=== PATIENT | female | born 1945 | race African-American/Black ===

== ENCOUNTER 2025-08-19 13:36 | Inpatient (IN) | payer OTHER ==
[2025-08-19 15:29] LABS: ABSOLUTE IMMATURE GRANULOCYTES 0.02 x10^3/uL (0.0-0.031); BASOPHILS # 0.05 x10^3/uL (0.01-0.08); EOSINOPHIL % 2.9 % (0.7-5.8); EOSINOPHILS # 0.19 x10^3/uL (0.04-0.36); MCHC 30.2 g/dl (32.2-35.5); MEAN CELL VOLUME 78.3 fl (79.4-94.8); MEAN PLT VOLUME 9.0 fl (9.4-12.3); MONOCYTE # 0.60 x10^3/uL (0.24-0.86); MONOCYTE % 9.1 % (4.7-12.5); RDW 17.7 % (12.4-16.6)
[2025-08-19 15:55] LABS: GLUCOSE,RANDOM 90.0 mg/dL (74-106); TOT PROT 6.2 g/dl (6.4-8.2)
[2025-08-19 15:56] LABS: CO2 27.0 mmol/L (21-32)
[2025-08-19 15:58] LABS: ALK PHOS 71.0 U/L (40-150)
[2025-08-19 16:00] LABS: SGOT/AST 20.0 U/L (5-34); SGPT/ALT 8.0 U/L (0-55)
[2025-08-19 16:01] LABS: CREATININE 0.47 mg/dL (0.55-1.3)
[2025-08-19 16:18] LABS: HIV INTERPRETATION NEGATIVE (NEGATIVE)
[2025-08-19 16:19] LABS: HCV DIAGNOSTIC IN-HOUSE W/RFLX NON-REACTIVE (NONREACTIVE)
[2025-08-19 19:24] LABS: URINE APPEARANCE CLEAR; URINE BILIRUBIN NEGATIVE (NEGATIVE); URINE COLOR YELLOW; URINE GLUCOSE (UA) NEGATIVE (NEGATIVE); URINE KETONE NEGATIVE (NEGATIVE); URINE LEUK ESTERASE NEGATIVE (NEGATIVE); URINE NITRITE NEGATIVE (NEGATIVE); URINE PROTEIN NEGATIVE (NEGATIVE); URINE UROBILINOGEN 0.2 mg/dL (0.2-1.0)
[2025-08-19 23:44] VITALS: BMI 31.5
[2025-08-20 09:37] LABS: MCHC 29.8 g/dl (32.2-35.5); MEAN CELL VOLUME 79.1 fl (79.4-94.8); MEAN PLT VOLUME 9.9 fl (9.4-12.3); RDW 17.6 % (12.4-16.6)
[2025-08-20] MEDS: ENOXAPARIN NA (PORCINE) 40 MG/0.4 ML DISP.SYRIN SQ SCH (09:53)
[2025-08-20 11:12] LABS: GLUCOSE,RANDOM 105.0 mg/dL (74-106)
[2025-08-20 11:14] LABS: CO2 25.0 mmol/L (21-32)
[2025-08-20 11:18] LABS: CREATININE 0.52 mg/dL (0.55-1.3)
[2025-08-20] MEDS: MAGNESIUM SULFATE IN WATER 2 GM/50 ML IVPB IVPB ONE (13:41)
[2025-08-20] MEDS: ARTIFICIAL TEARS OPHTHALMIC DROPS OU SCH (22:50)
[2025-08-20] MEDS: OXYMETAZOLINE 0.05% NASAL SOLUTION 15 ML BOTTLE NS SCH (22:51)
[2025-08-21 08:46] LABS: ABSOLUTE IMMATURE GRANULOCYTES 0.01 x10^3/uL (0.0-0.031); BASOPHILS # 0.03 x10^3/uL (0.01-0.08); EOSINOPHIL % 3.6 % (0.7-5.8); EOSINOPHILS # 0.28 x10^3/uL (0.04-0.36); MCHC 30.6 g/dl (32.2-35.5); MEAN CELL VOLUME 77.8 fl (79.4-94.8); MEAN PLT VOLUME 9.9 fl (9.4-12.3); MONOCYTE # 0.84 x10^3/uL (0.24-0.86); MONOCYTE % 10.7 % (4.7-12.5); RDW 17.3 % (12.4-16.6)
[2025-08-21 09:01] LABS: GLUCOSE,RANDOM 92 mg/dL (74-106); TOT PROT 4.8 g/dl (6.4-8.2)
[2025-08-21 09:02] LABS: CO2 27 mmol/L (21-32)
[2025-08-21 09:04] LABS: ALK PHOS 58 U/L (40-150)
[2025-08-21 09:06] LABS: CREATININE 0.54 mg/dL (0.55-1.3); SGOT/AST 15 U/L (5-34); SGPT/ALT < 6 U/L (0-55)
[2025-08-23 21:24] VITALS: RESP 18
[2025-08-25 07:42] VITALS: TEMP 97.5
[2025-08-25 08:41] LABS: GLUCOSE,RANDOM 116 mg/dL (74-106); TOT PROT 5.5 g/dl (6.4-8.2)
[2025-08-25 08:42] LABS: CO2 28 mmol/L (21-32)
[2025-08-25 08:44] LABS: ALK PHOS 61 U/L (40-150)
[2025-08-25 08:47] LABS: CREATININE 0.54 mg/dL (0.55-1.3); SGOT/AST 11 U/L (5-34); SGPT/ALT < 6 U/L (0-55)
[2025-08-25 09:12] VITALS: BP 116/59; PULSE 79
[2025-08-25 10:26] LABS: MCHC 30.4 g/dl (32.2-35.5); MEAN CELL VOLUME 78.2 fl (79.4-94.8); MEAN PLT VOLUME 10.4 fl (9.4-12.3); RDW 17.8 % (12.4-16.6)
== END 2025-08-25 11:41 | DRG 607 ==
LOC: JER 13:36 → JERBED 17:27 → J5S 22:35 → OBSVTOIN 08-20 09:19
PROVIDERS: ADMIT Hospitalist
DX: I89.0 Lymphedema, not elsewhere classified (principal); Z59.19 Other inadequate housing; F20.9 Schizophrenia, unspecified; R82.71 Bacteriuria
CPT/HCPCS: 36415; 70450-TC; 71045-TC-FY; 72125-TC; 72170-TC-FY; 80048; 80053; 81003; 82550; 82962; 83036; 83735; 84100; 84443; 84484; 85025; 85027; 86803; 87086; 87389; 93005; 93010; 97116-GP; 97161-GP; 99285-25; G0378